=== PATIENT | male | born 1980 | race Caucasian/White ===

== ENCOUNTER 2017-09-21 18:56 | Emergency (ER) | payer MEDICAID ==
[~2017-09-21] VITALS: Ht 172.7 cm; Wt 78.0 kg
[~2017-09-21 18:56] MED LIST: DOXY-200 PO; HYDR1TAB PO; IBUP100T33 PO; NOR5T PO; NORVASC; PENI500T2 PO
[2017-09-21 20:10] VITALS: BP 159/110
== END 2017-09-21 20:12 | disposition home or self-care (01) ==
LOC: ER 18:56
DX: M25.532 Pain in left wrist (principal); I10 Essential (primary) hypertension; G89.29 Other chronic pain; F15.10 Other stimulant abuse, uncomplicated; Z88.6 Allergy status to analgesic agent; W19.XXXA Unspecified fall, initial encounter; Y93.89 Activity, other specified; Y92.89 Other specified places as the place of occurrence of the external cause; Y99.8 Other external cause status
CPT/HCPCS: 73110; 99284; A6449

== ENCOUNTER 2018-07-27 19:57 | Emergency (ER) | payer MEDICAID ==
[~2018-07-27] VITALS: Ht 172.7 cm; Wt 81.8 kg
[2018-07-27] MEDS ORDERED: AMOX500C2 PO ×2 (21:05→21:08)
[2018-07-27 21:18] VITALS: BP 170/135
== END 2018-07-27 21:19 | disposition home or self-care (01) ==
LOC: ER 19:58
DX: K04.7 Periapical abscess without sinus (principal); I10 Essential (primary) hypertension; F15.90 Other stimulant use, unspecified, uncomplicated; F17.200 Nicotine dependence, unspecified, uncomplicated; Z88.6 Allergy status to analgesic agent; Z79.899 Other long term (current) drug therapy
CPT/HCPCS: 99283